=== PATIENT | male | born 1950 | race Caucasian/White ===

== ENCOUNTER 2016-05-19 17:28 | Observation (INO) | payer MEDICARE ==
--- NOTE | 2016-05-19 17:46 | ER Document Report ---
ED Neuro Symptoms/Deficit - General Mode of Arrival: Ambulatory Notes: Patient is a 65-year-old male that presents to the emergency department today with complaints of stroke-like symptoms. Patient states he had lightheadedness and tongue and face numbness on the right-hand side. Patient states he "couldn' t walk" initially when getting out of his truck and that he stumbled against a wall. Patient states he took tramadol and had a beer prior to this episode but he states that none of this is out of the ordinary for him. Patient does smoke. Patient states he does not have a seizure disorder. 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 Patient denies any recent illnesses. TRAVEL OUTSIDE OF THE [place] IN LAST 30 DAYS: No - HPI Patient complains to provider of: Other - see narrative Onset: Just prior to arrival Awoke with symptoms: No Duration: Better, Continues in ED Loss of consciousness: No loss of consciousness <TREE OCASIO - Last Filed: 05/19/16 21:36> <NOHEMY HENDERSON - Last Filed: 05/19/16 23:10> - General Stated Complaint: POSSIBLE STROKE - Related Data Allergies/Adverse Reactions: codeine [Codeine] Allergy (Unknown, Verified 10/30/15 16:50) Past Medical History - General Information source: Patient - Social History Smoking Status: Current Every Day Smoker Cigarette use (# per day): Yes Frequency of alcohol use: Occasional Drug Abuse: None Lives with: Family Family History: Reviewed & Not Pertinent - Medical History Notes: Hx of polio - Past Medical History Cardiac Medical History: Reports: Hx Hypercholesterolemia, Hx Hypertension, Hx Peripheral Vascular Disease Psychiatric Medical History: Reports: Hx Depression Past Surgical History: Reports: Hx Orthopedic Surgery - R and L leg/knee, Hx Vascular Surgery <TREE OCASIO - Last Filed: 05/19/16 21:36> Review of Systems - Review of Systems Constitutional: No symptoms reported EENT: No symptoms reported Cardiovascular: See HPI, Lightheaded Respiratory: No symptoms reported Gastrointestinal: No symptoms reported Genitourinary: No symptoms reported Male Genitourinary: No symptoms reported Musculoskeletal: No symptoms reported Skin: No symptoms reported Hematologic/Lymphatic: No symptoms reported Neurological/Psychological: See HPI, Numbness - tongue and mouth numbness on the right side -: Yes All other systems reviewed and negative <TREE OCASIO - Last Filed: 05/19/16 21:36> Physical Exam - Vital signs Vitals: Pulse Resp BP Pulse Ox 103 H 18 116/77 96 05/19/16 17:30 05/19/16 17:30 05/19/16 17:30 05/19/16 17:30 Interpretation: Tachycardic - General General appearance: Alert In distress: Moderate - Respiratory Respiratory status: No respiratory distress Chest status: Nontender Breath sounds: Normal - Cardiovascular Rhythm: Irregularly irregular - Abdominal Inspection: Normal Tenderness: Nontender - Back Back: Normal, Nontender - Neurological Neuro grossly intact: No [place] Coma Scale Eye Opening: Spontaneous [place] Coma Scale Verbal: Oriented [place] Coma Scale Motor: Obeys Commands [place] Coma Scale Total: 15 Speech: Dysarthria Cranial nerves: Sensory deficit Motor strength normal: LUE - at baseline for patient, LLE - decreased 4/5, RLE - at baseline for patient Sensory: Altered light touch - L face, LUE <NOHEMY HENDERSON - Last Filed: 05/19/16 23:10> Course - Laboratory Result Diagrams: 05/19/16 17:45 05/19/16 17:45 - Consults Call placed to [facility] at 2124 Time consulted: 21:24 Call Returned by [place] Ray Krueger Time consulted: 21:34 <TREE OCASIO - Last Filed: 05/19/16 21:36> - Re-evaluation Re-evalutation: 05/19/16 Patient is a 65-year-old male who presents with slurred speech, left lower extremity weakness, and right-sided sensory deficit. Patient was observed and symptoms resolved over a period of 2 hours. MRI of head with no acute findings. Patient is in atrial fibrillation and has not been Eliquis recently. Patient was discussed with Dr. Krueger from [facility]. Would restart the patient on Eliquis. Will consider admitting the patient with A. fib and TIA today. Discussed with hospitalist service and will be kept for observation. - Vital Signs Vital signs: Temp Pulse Resp BP Pulse Ox 103 H 33 H 117/72 98 05/19/16 17:30 05/19/16 18:16 05/19/16 18:16 03/03/17 18:16 - Laboratory Result Diagrams: 05/19/16 17:45 05/19/16 17:45 Laboratory results interpreted by me: 05/19/16 05/19/16 17:45 17:45 WBC 16.9 H Absolute Neutrophils 11.5 H Sodium 135.1 L Chloride 96 L Carbon Dioxide 21 L <NOHEMY HENDERSON - Last Filed: 05/19/16 23:10> Critical Care Note - Critical Care Note Total time excluding time spent on procedures (mins): 90 - evaluation and management of stroke like symptoms, multiple re-evaluations, consultation of cardiology, coordination of admission, counseling of patient and family <NOHEMY HENDERSON ANDREW - Last Filed: 05/19/16 23:10> ED [employer]/Exc Criteria - Diagnosis of TIA: -: Patient presented with transient symptoms that are now resolved and no other neurologic findings are currently present. List symptoms in comments. -: Yes -: Patient is NOT a candidate for tPA. -: Yes -: ____(put name in comment) has been consulted for admission and continued evaluation of risk factor assessment. <NOHEMY HENDERSON - Last Filed: 05/19/16 23:10> ED NIH Stroke Scale Discharge <TREE OCASIO - Last Filed: 05/19/16 21:36> - Discharge Admitting Provider: [facility] Unit Admitted: Telemetry Scribe Attestation: 05/19/16 23:10 I personally performed the services described in the documentation, reviewed and edited the documentation which was dictated to the scribe in my presence, and it accurately records my words and actions. <NOHEMY HENDERSON ANDREW - Last Filed: 05/19/16 23:10> - Discharge Clinical Impression: TIA (transient ischemic attack) Qualifiers: Transient cerebral ischemia type: unspecified Qualified Code(s): G45.9 - Transient cerebral ischemic attack, unspecified Atrial fibrillation Qualifiers: Atrial fibrillation type: unspecified Qualified Code(s): I48.91 - Unspecified atrial fibrillation Condition: Stable Disposition: ADMITTED OBSERVATION Scribe Documentation - Scribe Written by Scribe:: Zaira Francisco, [id number] acting as scribe for DrJulisa:: Sneha <TREE OCASIO - Last Filed: 05/19/16 21:36>
[2016-05-19 17:59] LABS: ABSOLUTE BASOPHILS # (AUTO) 0.1 10^3/uL (0.0-0.2); ABSOLUTE EOSINOPHILS # (AUTO) 0.6 10^3/uL (0.0-0.6); ABSOLUTE LYMPHOCYTES (AUTO) 3.3 10^3/uL (0.5-4.7); ABSOLUTE MONOCYTES (AUTO) 1.4 10^3/uL (0.1-1.4); ABSOLUTE NEUT (AUTO) 11.5 10^3/uL (1.7-8.2); BASOPHILS % (AUTO) 0.9 % (0-2); EOSINOPHILS % (AUTO) 3.5 % (0-6); HEMATOCRIT 48.8 % (37.9-51.0); HEMOGLOBIN 16.6 g/dL (13.5-17.0); LYMPHOCYTES % (AUTO) 19.3 % (13-45); MEAN CORPUSCULAR VOLUME 94 fl (80-97); MONOCYTES % (AUTO) 8.2 % (3-13); RED BLOOD COUNT 5.19 10^6/uL (4.35-5.55); RED CELL DISTRIBUTION WIDTH 13.6 % (11.5-14.0); SEGMENTED NEUTROPHILS % (AUTO) 68.1 % (42-78); WHITE BLOOD COUNT 16.9 10^3/uL (4.0-10.5)
[2016-05-19 18:00] LABS: PROTHROMBIN TIME 12.8 SEC (11.4-15.4)
[2016-05-19 18:01] LABS: PARTIAL THROMBOPLASTIN TIME 27.2 SEC (23.5-35.8)
[2016-05-19 18:16] LABS: ALANINE AMINOTRANSFERASE 44 U/L (21-72); ALBUMIN 4.1 g/dL (3.5-5.0); ALCOHOL 63 mg/dL (NONE DETECTED); ALKALINE PHOSPHATASE 62 U/L (38-126); ANION GAP 18 (5-19); ASPARTATE AMINO TRANSFERASE 35 U/L (17-59); BILIRUBIN,TOTAL 0.6 mg/dL (0.2-1.3); BLOOD UREA NITROGEN 17 mg/dL (7-20); CARBON DIOXIDE 21 mmol/L (22-30); CHLORIDE 96 mmol/L (98-107); CREATINE KINASE 98 U/L (55-170); CREATININE RESULT 0.64 mg/dL (0.52-1.25); GLUCOSE 103 mg/dL (75-110); POTASSIUM 4.1 mmol/L (3.6-5.0); SODIUM 135.1 mmol/L (137-145); TOTAL PROTEIN 6.9 g/dL (6.3-8.2)
[2016-05-19 18:26] LABS: CREATINE KINASE MB 1.24 ng/mL (<4.55); TROPONIN I < 0.012 ng/mL
--- NOTE | 2016-05-19 18:53 | EKG REPORT ---
SEVERITY:- ABNORMAL ECG - ATRIAL FIBRILLATION, V-RATE 72-120 RIGHT BUNDLE BRANCH BLOCK : Confirmed by: Fabián Sifuentes MD 19-May-2016 18:52:24
[2016-05-19] MEDS ORDERED: DIAZEPAM 2 MG TABLET PO ONE (20:02)
[2016-05-19] MEDS ORDERED: APIXABAN 5 MG TABLET PO ONE (21:36)
[2016-05-19] MEDS ORDERED: DOCUSATE SODIUM 100 MG CAPSULE PO PRN (22:43)
[2016-05-19] MEDS ORDERED: ACETAMINOPHEN 325 MG TABLET PO PRN (22:43)
--- NOTE | 2016-05-20 04:37 | PDOC H&P ---
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 Patient been in his usual state of health until approximately 4 hours prior to presentation he had returned from [place] after visiting an ill relative and hospital had a sudden onset of numbness and tingling about the lips and fingertips. Prior to this he had had a single beer resulting in an ethanol level of 63 6 hours prior to testing and a single tramadol. His symptoms progressed finding it difficult to walk and having slurred speech. In the emergency room his symptoms have resolved to baseline. He denies anxiety, any new medications, palpitations nausea vomiting headache or blurred vision. In the emergency room he has an unremarkable CT of the head MRI of the head and is referred to the hospitalist for admission. Past Medical History Cardiac Medical History: Reports: Atrial Fibrillation, Hyperlipidema, Hypertension, Peripheral Vascular Disease Endocrine Medical History: Reports: Obesity Psychiatric Medical History: Reports: Depression, Tobacco Dependency Past Surgical History Past Surgical History: Reports: Orthopedic Surgery - R and L leg/knee, Vascular Surgery Social History Lives with: Family Smoking Status: Current Every Day Smoker Cigarettes Packs Per Day: 1 Number of Years Smokin Frequency of Alcohol Use: Social Hx Recreational Drug Use: No Drugs: None Hx Prescription Drug Abuse: No - Advance Directive Resuscitation Status: Full Code Family History Family History: CVA Parental Family History Reviewed: Yes Children Family History Reviewed: Yes Sibling(s) Family History Reviewed.: Yes Medication/Allergy Home Medications: Alprazolam 0.5 mg PO BID 10/30/15 Apixaban [Eliquis] 5 mg PO BID 10/30/15 Losartan/Hydrochlorothiazide [Hyzaar 100-25 Tablet] 1 tab PO DAILY 10/30/15 Metoprolol Succinate 50 mg PO DAILY 10/30/15 Pravastatin Sodium 40 mg PO DAILY 10/30/15 Tramadol HCl 50 mg PO PRN PRN 10/30/15 Ceftriaxone 2 gm/D5w RTU [Rocephin RTU 2 gm/D5w 50 ml Premix Bag] 2 gm IV DAILY #14 rtupb 11/01/15 Allergies/Adverse Reactions: codeine [Codeine] Allergy (Unknown, Verified 10/30/15 16:50) Review of Systems Constitutional: ABSENT: chills, fever(s), headache(s), weight gain, weight loss Eyes: ABSENT: visual disturbances Ears: ABSENT: hearing changes Cardiovascular: ABSENT: chest pain, dyspnea on exertion, edema, orthropnea, palpitations Respiratory: ABSENT: cough, hemoptysis Gastrointestinal: ABSENT: abdominal pain, constipation, diarrhea, hematemesis, hematochezia, nausea, vomiting Genitourinary: ABSENT: dysuria, hematuria Musculoskeletal: ABSENT: joint swelling Integumentary: ABSENT: rash, wounds Neurological: ABSENT: abnormal gait, abnormal speech, confusion, dizziness, focal weakness, syncope Psychiatric: ABSENT: anxiety, depression, homidical ideation, suicidal ideation Endocrine: ABSENT: cold intolerance, heat intolerance, polydipsia, polyuria Hematologic/Lymphatic: ABSENT: easy bleeding, easy bruising Physical Exam Vital Signs: Temp Pulse Resp BP Pulse Ox 97.3 F 79 18 108/74 98 05/20/16 00:14 05/20/16 02:00 05/20/16 00:30 05/20/16 00:30 05/20/16 00:30 Intake & Output 05/18/16 05/19/16 05/20/16 11:59 11:59 11:59 Weight 128.9 kg General appearance: PRESENT: no acute distress, well-developed, well-nourished Head exam: PRESENT: atraumatic, normocephalic Eye exam: PRESENT: conjunctiva pink, EOMI, PERRLA. ABSENT: scleral icterus Ear exam: PRESENT: normal external ear exam Mouth exam: PRESENT: moist, tongue midline Neck exam: ABSENT: carotid bruit, JVD, lymphadenopathy, thyromegaly Respiratory exam: PRESENT: clear to auscultation [place]. ABSENT: rales, rhonchi, wheezes Cardiovascular exam: PRESENT: RRR. ABSENT: diastolic murmur, rubs, systolic murmur Pulses: PRESENT: normal dorsalis pedis pul Vascular exam: PRESENT: normal capillary refill GI/Abdominal exam: PRESENT: normal bowel sounds, soft. ABSENT: distended, guarding, mass, organolmegaly, rebound, tenderness Rectal exam: PRESENT: deferred Extremities exam: PRESENT: full ROM, +1 edema - Chronic right leg edema. ABSENT : calf tenderness, clubbing, pedal edema Neurological exam: PRESENT: alert, awake, oriented to person, oriented to place , oriented to time, oriented to situation, CN II-XII grossly intact. ABSENT: motor sensory deficit Psychiatric exam: PRESENT: appropriate affect, normal mood. ABSENT: homicidal ideation, suicidal ideation Skin exam: PRESENT: dry, intact, warm. ABSENT: cyanosis, rash Results Impressions: Chest X-Ray 05/19/16 17:31 IMPRESSION: NO ACUTE RADIOGRAPHIC FINDING IN THE CHEST. Head CT 05/19/16 17:31 IMPRESSION: 1. No evidence of acute event. 2. Mild chronic small vessel ischemic disease. Head MRI 05/19/16 18:48 IMPRESSION: Negative for acute or sub-acute infarction. Scattered high-signal intensity lesions scattered throughout the white matter on FLAIR imaging with distribution suggesting chronic micro-vascular ischemic change. Assessment & Plan - Diagnosis (1) TIA (transient ischemic attack) Qualifiers: Transient cerebral ischemia type: unspecified Qualified Code(s): G45.9 - Transient cerebral ischemic attack, unspecified Is this a current diagnosis for this admission?: YesPlan: Vague symptoms confounded by benzodiazepine, tramadol, alcohol and noncompliance with anticoagulation. He'll be observed on a monitored bed evaluated for TIA with resumption of Eliquis, aspirin, statin evaluation of carotid artery, and 2-D echo. (2) Atrial fibrillation Qualifiers: Atrial fibrillation type: unspecified Qualified Code(s): I48.91 - Unspecified atrial fibrillation Is this a current diagnosis for this admission?: YesPlan: Rate limited resume Eliquis evaluate CBC in a.m. (3) Leukocytosis Is this a current diagnosis for this admission?: YesPlan: Patient is without focal symptoms I'll evaluate a urinalysis and repeat CBC in a.m. (4) Tobacco abuse Is this a current diagnosis for this admission?: YesPlan: Tobacco Dependence patient received tobacco cessation counseling and offered nicotine replacement options (5) Morbid obesity with BMI of 40.0-44.9, adult Is this a current diagnosis for this admission?: YesPlan: Consider evaluation of TSH and dietitian consult - Time Time Spent: 50 to 70 Minutes
[2016-05-20 04:55] LABS: APPEARANCE,URINE CLEAR; BILIRUBIN,URINE NEGATIVE (NEGATIVE); GLUCOSE, URINE NEGATIVE (NEGATIVE); KETONES,URINE NEGATIVE (NEGATIVE); LEUKOCYTE ESTERASE,URINE NEGATIVE (NEGATIVE); NITRITE,URINE NEGATIVE (NEGATIVE); PROTEIN,URINE 30 mg/dL (NEGATIVE); URINE SPECIFIC GRAVITY 1.006; UROBILINOGEN,URINE NEGATIVE mg/dL (<2.0)
[2016-05-20 05:13] LABS: URINE BARBITURATES SCREEN NEGATIVE; URINE METHADONE SCREEN NEGATIVE; URINE OPIATES LOW NEGATIVE; URINE PHENCYCLIDINE SCREEN NEGATIVE
[2016-05-20] MEDS ORDERED: ASPIRIN 325 MG TABLET, ENT COATED PO SCH (10:00)
[2016-05-20] MEDS ORDERED: METOPROLOL SUCCINATE 50 MG TAB.SR.24H PO SCH (10:00)
[2016-05-20] MEDS: APIXABAN 5 MG TABLET PO SCH ×2 (10:27→17:04)
[2016-05-20] MEDS: ALPRAZOLAM 0.5 MG TABLET PO SCH ×2 (10:31→17:04)
[2016-05-20 16:09] VITALS: BP 108/74
--- NOTE | 2016-05-20 17:08 | PDOC DISCHARGE SUMMARY ---
General - Admit/Disc Date/PCP Admission Date/Primary Care Provider: 05/19/16 22:43 [facility]- Discharge Date: 05/20/16 - Discharge Diagnosis (1) TIA (transient ischemic attack) Is this a current diagnosis for this admission?: YesSummary: Patient underwent CT of the head, MRI of the head and carotid duplex which were all normal. His main complaint was numbness of his fingers and lips. This has resolved (2) Atrial fibrillation Is this a current diagnosis for this admission?: YesSummary: Patient does have paroxysmal atrial fibrillation a controlled on telemetry. He had stopped his Eliquis on his own. This is been reinitiated he is agreeable to take and follow-up with craft demonstrator. (3) Morbid obesity with BMI of 40.0-44.9, adult Is this a current diagnosis for this admission?: YesSummary: Patient counseled on need for weight loss (4) Tobacco abuse Is this a current diagnosis for this admission?: YesSummary: Patient counseled he does not plan on quitting anytime soon. (5) Obstructive sleep apnea Summary: Patient missed noncompliance with his CPAP. We discussed this could cause hypercapnea and his symptoms he's been having. States he will become compliant with using CPAP nightly. - Additional Information Resuscitation Status: Full Code Discharge Activity: Activity As Tolerated Home Medications: Apixaban [Eliquis 5 mg Tablet] 5 mg PO BID tablet 05/20/16 Apixaban [Eliquis 5 mg Tablet] 5 mg PO BID #60 tablet 05/20/16 Aspirin [Aspirin EC] 81 mg PO DAILY 05/20/16 Losartan/Hydrochlorothiazide [Hyzaar 100-25 Tablet] 1 each PO DAILY 05/20/16 Metoprolol Succinate [Toprol Xl 50 mg Tab.sr] 50 mg PO DAILY 05/20/16 Metoprolol Succinate [Toprol Xl 50 mg Tab.sr] 50 mg PO DAILY tab.sr.24h Multivit-Min/FA/Lycopen/Lutein [Centrum Silver Men Tablet] 1 each PO DAILY 05/20 Pravastatin Sodium [Pravachol] 20 mg PO DAILY 05/20/16 Tramadol HCl [Ultram 50 mg Tablet] 50 mg PO DAILYP PRN 05/20/16 History of Present Illness Patient complains of: Numbness of the lips, right hand and difficulty walking History of Present Illness: FARTUN CARRION is a 65 year old male with past medical history of atrial fibrillation, morbid obesity, obstructive sleep apnea, dyslipidemia, essential hypertension and tobacco abuse present, presents with numbness of lips, right hand and difficulty walking. Full workup in the ER which included CT of the head which is unremarkable and lab values. His noted to have paroxysmal atrial fibrillation rate controlled on EKG. It stopped taking his Eliquis recently. He states he did not think he was in atrial fibrillation anymore. By the time he arrived here his symptoms have resolved. He was referred to the hospitalist service for admission. Hospital Course Hospital Course: Patient was admitted to [facility] on telemetry. He underwent MRI of his head which can was unremarkable for any acute infarct. He had carotid duplex ordered for done later today. These were unremarkable for any obvious stenosis. Patient had some paroxysmal atrial fibrillation which is rate controlled. He was placed back on his Eliquis therapy and discussed the need for him to take this. He's had no further symptoms. He is agreeable to all Neal therapy and using his CPAP. He will follow-up with craft demonstrator post discharge Physical Exam Vital Signs: Temp Pulse Resp BP Pulse Ox 97.5 F 83 20 108/74 95 05/20/16 16:05 05/20/16 16:05 05/20/16 16:05 05/20/16 16:05 05/20/16 16:05 Intake & Output 05/19/16 05/20/16 05/21/16 06:59 06:59 06:59 Intake Total 484 1074 Output Total 650 500 Balance -166 574 Weight 128.9 kg 128.9 kg General appearance: PRESENT: no acute distress, morbidly obese, well-developed, well-nourished Head exam: PRESENT: atraumatic, normocephalic Eye exam: PRESENT: conjunctiva pink, EOMI, PERRLA. ABSENT: scleral icterus Ear exam: PRESENT: normal external ear exam Mouth exam: PRESENT: moist, tongue midline Neck exam: ABSENT: carotid bruit, JVD, lymphadenopathy, thyromegaly Respiratory exam: PRESENT: clear to auscultation [place]. ABSENT: rales, rhonchi, wheezes Cardiovascular exam: PRESENT: RRR. ABSENT: diastolic murmur, rubs, systolic murmur Pulses: PRESENT: normal dorsalis pedis pul Vascular exam: PRESENT: normal capillary refill GI/Abdominal exam: PRESENT: normal bowel sounds, soft. ABSENT: distended, guarding, mass, organolmegaly, rebound, tenderness Rectal exam: PRESENT: deferred Extremities exam: PRESENT: full ROM. ABSENT: calf tenderness, clubbing, pedal edema Neurological exam: PRESENT: alert, awake, oriented to person, oriented to place , oriented to time, oriented to situation, CN II-XII grossly intact. ABSENT: motor sensory deficit Psychiatric exam: PRESENT: appropriate affect, normal mood. ABSENT: homicidal ideation, suicidal ideation Skin exam: PRESENT: dry, intact, warm. ABSENT: cyanosis, rash Results Laboratory Results: 05/20/16 04:40 Urine Color YELLOW Urine Appearance CLEAR Urine pH 6.0 Ur Specific [place] 1.006 Urine Protein 30 H Urine Glucose (UA) NEGATIVE Urine Ketones NEGATIVE Urine Blood NEGATIVE Urine Nitrite NEGATIVE Ur Leukocyte Esterase NEGATIVE Impressions: Chest X-Ray 05/19/16 17:31 IMPRESSION: NO ACUTE RADIOGRAPHIC FINDING IN THE CHEST. Head CT 05/19/16 17:31 IMPRESSION: 1. No evidence of acute event. 2. Mild chronic small vessel ischemic disease. Head MRI 05/19/16 18:48 IMPRESSION: Negative for acute or sub-acute infarction. Scattered high-signal intensity lesions scattered throughout the white matter on FLAIR imaging with distribution suggesting chronic micro-vascular ischemic change. Carotid Doppler Study 05/20/16 00:00 IMPRESSION: NO HEMODYNAMICALLY SIGNIFICANT STENOSIS. Qualifiers PATEINT BEING DISCHARGED WITH ANY OF THE FOLLOWING DIAGNOSIS?: No Plan Discharge Plan: Discharge home with family Time Spent: Less than 30 Minutes
[2016-05-20] MEDS ORDERED: ATORVASTATIN CALCIUM 10 MG TABLET PO SCH (22:00)
== END 2016-05-20 17:19 | disposition home or self-care (01) ==
LOC: ER 17:28 → OBSVTOIN 22:23 → UNDOADMOB 22:23 → INTOOBSV 22:23 → EH 22:23 → OBSVTOIN 22:43 → INTOOBSV 22:43 → 3W 23:50
PROVIDERS: ADMIT Internal Medicine; ATTEND Internal Medicine
DX: G45.9 Transient cerebral ischemic attack, unspecified (principal); I48.0 Paroxysmal atrial fibrillation; E66.01 Morbid (severe) obesity due to excess calories; Z68.41 Body mass index [BMI] 40.0-44.9, adult; G47.33 Obstructive sleep apnea (adult) (pediatric); I10 Essential (primary) hypertension; E78.5 Hyperlipidemia, unspecified; F17.210 Nicotine dependence, cigarettes, uncomplicated; D72.829 Elevated white blood cell count, unspecified
CPT/HCPCS: 93005; 99291; 99292; 36415; 82553; 82962; 80307 ×2; 82550; 85025; 85610; 85730; 80053; 81001; 84484; 93880; 70551; 71010; 70450; 93010; A9270 ×5; J3490

== ENCOUNTER → 2017-09-17 | Outpatient (CLI) | payer MEDICARE ==
--- NOTE | 2017-09-17 16:00 | RADIOLOGY REPORT (SQ) ---
EXAM DESCRIPTION: ARTERIAL LOWER EXTREM BILAT COMPLETED DATE/TIME: 09/17/2017 2:42 pm REASON FOR STUDY: PVD I73.9 PERIPHERAL VASCULAR DISEASE, UNSPECIFIED COMPARISON: None. TECHNIQUE: Dynamic and static wolfe scale and color images acquired of the lower extremity arteries. Additional selected spectral images recorded. ABIs recorded. LIMITATIONS: Obese patient, tachycardic FINDINGS: RIGHT LEG: ABIS: Patient refused ankle-brachial indices INFLOW ARTERIES: Monophasic flow in the right distal external iliac artery worrisome for more proxima l stenosis FEMORAL ARTERIES:Monophasic flow in the right profunda and superficial femoral arteries. Diffuse dis ease throughout the right superficial femoral artery with multiple tandem stenoses. Superficial femo ral artery not well seen at the adductor canal. POPLITEAL ARTERY:Monophasic waveforms, diffusely diseased. PATENT TIBIOPERONEAL TRUNK AND 3 VESSEL RUNOFF: Monophasic flow in the posterior tibial artery. Prox imal anterior tibial artery is occluded. There is monophasic flow in the dorsalis pedis artery from collaterals. Peroneal artery not visualized. TBI: Not performed. OTHER: No other significant finding. LEFT LEG: ABIS: Patient refused ankle-brachial indices INFLOW ARTERIES: Monophasic flow in the distal left external iliac artery/proximal common femoral art joseph worrisome for more proximal stenosis. FEMORAL ARTERIES:Monophasic flow in the left profunda and superficial femoral arteries.. Diffuse dise ase throughout the left superficial femoral artery with multiple tandem stenoses. Superficial femora l artery not well seen at the adductor canal. POPLITEAL ARTERY:Monophasic waveforms. Diffusely diseased PATENT TIBIOPERONEAL TRUNK AND 3 VESSEL RUNOFF: Posterior tibial artery is patent with monophasic maggie w. Anterior tibial artery is occluded proximally, with monophasic flow seen in the dorsalis pedis ar ysabel. Peroneal artery not visualized. TBI: Not performed. OTHER: No other significant finding. IMPRESSION: Limited study due to body habitus and tachycardia. There is iliac inflow disease and bi lateral significant superficial femoral artery disease. 1 vessel runoff in the calf bilaterally. Patient refused ankle-brachial indices COMMENT: [facility] NORMAL: Greater than 1.0 MINIMAL DISEASE: 0.9 to 1.0 CLAUDICATION: 0.5 to 0.9 SEVERE ARTERIAL DISEASE: Less than 0.5 [facility] NORMAL: Greater than 1.0 (1.2 If Heavy Calcifications) NORMAL TO MILD ISCHEMIA: 0.8 to 1.0 MODERATE ISCHEMIA: 0.4 to 0.8 SEVERE ISCHEMIA: Less than 0.4 TECHNICAL DOCUMENTATION: JOB ID: [id number] [employer]- All Rights Reserved Reading location - IP/workstation name: [email or web address]
== END ==
LOC: SP 08:34
PROVIDERS: ATTEND Surgery
DX: I73.9 Peripheral vascular disease, unspecified (principal)
CPT/HCPCS: 93925

== ENCOUNTER 2017-10-09 15:47 | Emergency (ER) | payer MEDICARE ==
[2017-10-09] MEDS ORDERED: MORPHINE SULFATE 10 MG/ML INJ IV ONE (16:25)
[2017-10-09 16:27] LABS: ABSOLUTE BASOPHILS # (AUTO) 0.1 10^3/uL (0.0-0.2); ABSOLUTE EOSINOPHILS # (AUTO) 0.7 10^3/uL (0.0-0.6); ABSOLUTE LYMPHOCYTES (AUTO) 1.7 10^3/uL (0.5-4.7); ABSOLUTE NEUT (AUTO) 6.1 10^3/uL (1.7-8.2); BASOPHILS % (AUTO) 0.8 % (0-2); EOSINOPHILS % (AUTO) 7.5 % (0-6); HEMATOCRIT 45.2 % (37.9-51.0); LYMPHOCYTES % (AUTO) 17.8 % (13-45); MEAN CORPUSCULAR HEMOGLOBIN 31.4 pg (27.0-33.4); MEAN CORPUSCULAR HGB CONC 33.1 g/dL (32.0-36.0); MEAN CORPUSCULAR VOLUME 95 fl (80-97); MONOCYTES % (AUTO) 10.2 % (3-13); PLATELET COUNT 342 10^3/uL (150-450); RED BLOOD COUNT 4.76 10^6/uL (4.35-5.55); RED CELL DISTRIBUTION WIDTH 14.8 % (11.5-14.0); SEGMENTED NEUTROPHILS % (AUTO) 63.7 % (42-78); TOTAL CELLS COUNTED % (AUTO) 100 %; WHITE BLOOD COUNT 9.5 10^3/uL (4.0-10.5)
[2017-10-09 16:36] LABS: ALANINE AMINOTRANSFERASE 22 U/L (21-72); ALBUMIN 3.3 g/dL (3.5-5.0); ALKALINE PHOSPHATASE 61 U/L (38-126); ANION GAP 11 (5-19); ASPARTATE AMINO TRANSFERASE 24 U/L (17-59); BILIRUBIN,DIRECT 0.3 mg/dL (0.0-0.4); BILIRUBIN,TOTAL 0.4 mg/dL (0.2-1.3); BLOOD UREA NITROGEN 14 mg/dL (7-20); C-REACTIVE PROTEIN 34.5 mg/L (<10.0); CALCIUM 9.3 mg/dL (8.4-10.2); CARBON DIOXIDE 33 mmol/L (22-30); CHLORIDE 95 mmol/L (98-107); CREATINE KINASE 65 U/L (55-170); GLUCOSE 118 mg/dL (75-110); POTASSIUM 4.6 mmol/L (3.6-5.0); SODIUM 138.8 mmol/L (137-145); TOTAL PROTEIN 6.5 g/dL (6.3-8.2)
[2017-10-09 16:46] LABS: CREATINE KINASE MB 1.03 ng/mL (<4.55); NT PRO BNP 644 pg/mL (5-900)
--- NOTE | 2017-10-09 16:46 | RADIOLOGY REPORT (SQ) ---
EXAM DESCRIPTION: CHEST SINGLE VIEW COMPLETED DATE/TIME: 10/09/2017 4:39 pm REASON FOR STUDY: ble, new RBBB COMPARISON: 05/19/2016 NUMBER OF VIEWS: One view. TECHNIQUE: Single frontal radiographic view of the chest acquired. LIMITATIONS: None. FINDINGS: LUNGS AND PLEURA: No opacities, masses or pneumothorax. No pleural effusion. MEDIASTINUM AND HILAR STRUCTURES: No masses. Contour normal. HEART AND VASCULAR STRUCTURES: Heart enlarged without failure. Normal vasculature. BONES: No acute findings. HARDWARE: None in the chest. OTHER: No other significant finding. IMPRESSION: No acute findings. TECHNICAL DOCUMENTATION: JOB ID: [id number] [employer]- All Rights Reserved Reading location - IP/workstation name: [email or web address]
[2017-10-09 16:47] LABS: TROPONIN I < 0.012 ng/mL
--- NOTE | 2017-10-09 16:53 | ER Document Report ---
ED General - General Stated Complaint: LEG SWELLING Time Seen by Provider: 10/09/17 16:15 Mode of Arrival: Medic Information source: Patient, Relative TRAVEL OUTSIDE OF THE [place] IN LAST 30 DAYS: No - HPI Notes: 67-year-old male hypertension, hypercholesterolemia, PVD, atrial fibrillation presents to the ED via EMS for complaints of severe bilateral lower leg pain and swelling has become severely worse in the last 3 weeks since he was diagnosed with heart arterial occlusion bilateral lower extremity by Dr. Wilmer Zheng. Patient was referred to a vascular surgeon in [place] which he has an appointment in 2 days. It is 10 out of 10, sharp constant and achy. Denies any recent trauma. Is currently on Xarelto 20 mg which she has been on for the last year for atrial fibrillation which has been stable. Patient recently quit smoking a week ago. Reports he used to smoke a pack a day for at least 40 years. patient does not take any diuretics. Patient is unable to ambulate due to severe pain has not taken any controlled substance pain medication. been occurring for the last 3 weeks was evaluated by Dr. Wilmer Zheng, vascular surgeon who did an ultrasound which showed concern for occlusion to femoral arteries with noted stenosis, occlusion posterior tibial artery. Denies any chest pain, shortness of breath, nausea vomiting or diarrhea. - Related Data Allergies/Adverse Reactions: codeine [Codeine] Allergy (Unknown, Verified 10/30/15 16:50) Past Medical History - General Information source: Patient, Relative - - Social History Smoking Status: Former Smoker - quite 1 week ago Family History: Reviewed & Not Pertinent, CVA, Hyperlipidemia, Hypertension - Past Medical History Cardiac Medical History: Reports: Hx Atrial Fibrillation, Hx Hypercholesterolemia, Hx Hypertension, Hx Peripheral Vascular Disease Psychiatric Medical History: Reports: Hx Depression Past Surgical History: Reports: Hx Orthopedic Surgery - R and L leg/knee, Hx Vascular Surgery - Immunizations Hx Pneumococcal Vaccination: 12/17/16 Review of Systems - Review of Systems Constitutional: See HPI EENT: No symptoms reported Cardiovascular: No symptoms reported Respiratory: No symptoms reported Gastrointestinal: No symptoms reported Genitourinary: No symptoms reported Male Genitourinary: No symptoms reported Musculoskeletal: See HPI Skin: See HPI Hematologic/Lymphatic: See HPI Neurological/Psychological: No symptoms reported Physical Exam - Vital signs Vitals: Temp 97.8 F 10/09/17 17:56 - Notes Notes: PHYSICAL EXAMINATION: GENERAL: Chronically ill morbidly obese and in moderate distress HEAD: Atraumatic, normocephalic. EYES: Pupils equal round and reactive to light, extraocular movements intact, sclera anicteric, conjunctiva are normal. ENT: Nares patent, oropharynx clear without exudates. Moist mucous membranes. NECK: Normal range of motion, supple without lymphadenopathy LUNGS: Breath sounds clear to auscultation bilaterally and equal. No wheezes rales or rhonchi. HEART: Regular rate and rhythm without murmurs ABDOMEN: Soft, nontender, nondistended abdomen. No guarding, no rebound. No masses appreciated. Musculoskeletal: Normal range of motion, no pitting or edema. No cyanosis. left and calf severe pain with palpation to calf. positive hyun's sign bilaterally. Full motor and sensory function. no ecchymosis or abrasions noted. Bilateral lower extremity without deformity or asymmetry. Noted swelling and edema to bilateral lower extremities, nonpitting. Able to palpate pulses and posterior tibial, dorsalis Pedialyte as, popliteal bilaterally, faint pulses palpated in femoral arteries bilaterally. Radial pulses +2 bilateral upper extremities equally. delayed capillary refill to femoral arteries, approximately 5 seconds. No lesions or break in the skin integrity. No evidence of compartment syndrome, lymphadenopathy, gangrene. No palpable cords or evidence of thrombophlebitis. IF HAD THROMBO: possible superficial thrombophlebitis with palpable, tender cords. NEUROLOGICAL: Cranial nerves grossly intact. Normal speech, normal gait. Normal sensory, motor exams PSYCH: Normal mood, normal affect. SKIN: Warm, Dry, normal turgor, no rashes or lesions noted. Course - Re-evaluation Re-evalutation: 10/09/17 17:43 67-year-old male is afebrile, in severe pain presents to the ED via EMS for severe lower leg pain and history of bilateral lower extremity vascular occlusion any arterial ultrasound was read by Dr. Jacques Russell, vascular surgeon on 09/17/2017 Was advised then to follow-up with her vascular surgeon, referral to a vascular surgeon Petra, patient has an appointment in 2 days to be seen by vascular surgeon. Patient states that pain is become so severe he cannot ambulate and uses a scooter at home. he is only had [id number] ibuprofen and Tylenol, has not tried any controlled substances for pain control. Cardiac enzymes negative, chest x-ray, per radiology. EKG negative for STEMI, heart rate 81, patient is in A. fib as well as on Eliquis. CBC negative for leukocytosis. CMP unremarkable. Consulted with Dr. Wilmer Zheng , vascular surgeon chief operations officer, at 1641 to consult about this patient's, he states that if he pain is becoming more severe that it would not be inappropriate to order another arterial ultrasound however he does need an angiogram which we are not able to do it at [facility] and advised to initiate transfer to [place] for evaluation by vascular surgeon. Venous ultrasound bilateral lower extremities negative for dvt's. consulted with [facility] Johnston in [place], [place] with Dr. Morteza Anthony, vascular surgeon, at 1700, regarding patient's vascular occlusion with severe pain for angiogram and further evaluation. Patient is taking Xarelto 20 mg daily for the last year for atrial fibrillation. Eze this has not prevented occlusion, advised to start heparin per protocol with bolus and maintenance. Coags and platelets are normal. Pt was excepted with the ER to ER transfer. Patient given morphine and Dilaudid for pain control. On reevaluation, pain is reduced to 6 out of 10 as opposed to 10 out of 10. Patient will be going by ground ambulance. - Vital Signs Vital signs: Temp Pulse Resp BP Pulse Ox 97.8 F 10/09/17 18:29 - Laboratory Result Diagrams: 10/09/17 15:23 10/09/17 15:23 Laboratory results interpreted by me: 10/09/17 10/09/17 10/09/17 15:23 15:23 15:23 RDW 14.8 H Eosinophils % 7.5 H Absolute Eosinophils 0.7 H PT 21.2 H APTT 37.3 H Chloride 95 L Carbon Dioxide 33 H Glucose 118 H C-Reactive Protein 34.5 H Albumin 3.3 L Urine Protein 10/09/17 17:20 RDW Eosinophils % Absolute Eosinophils PT APTT Chloride Carbon Dioxide Glucose C-Reactive Protein Albumin Urine Protein 30 H Discharge - Discharge Clinical Impression: Vascular occlusion of lower extremities, Severe leg pain, Morbid obesity with BMI of 40.0-44.9, adult, Pulselessness to BLE Atrial fibrillation Qualifiers: Atrial fibrillation type: paroxysmal Qualified Code(s): I48.0 - Paroxysmal atrial fibrillation Condition: Stable Disposition: [facility] Referrals: BRUCE ZHENG MD [ACTIVE STAFF] - Follow up as needed
[2017-10-09] MEDS ORDERED: HEPARIN SOD (PORCINE) 1,000 UNIT/ML 10 ML VIAL IV ONE (17:16)
[2017-10-09] MEDS ORDERED: HEPARIN SODIUM,PORCINE/D5W 25,000 UNIT/250 ML RTUINJ IV PRN (17:18)
[2017-10-09 17:31] LABS: PARTIAL THROMBOPLASTIN TIME 37.3 SEC (23.5-35.8)
[2017-10-09 17:40] LABS: INTERNATIONAL RATION (INR) 1.74; PROTHROMBIN TIME 21.2 SEC (11.4-15.4)
[2017-10-09 17:42] LABS: APPEARANCE,URINE CLEAR; BILIRUBIN,URINE NEGATIVE (NEGATIVE); COLOR,URINE YELLOW; GLUCOSE, URINE NEGATIVE (NEGATIVE); KETONES,URINE NEGATIVE (NEGATIVE); LEUKOCYTE ESTERASE,URINE NEGATIVE (NEGATIVE); NITRITE,URINE NEGATIVE (NEGATIVE); PROTEIN,URINE 30 mg/dL (NEGATIVE); UROBILINOGEN,URINE NEGATIVE mg/dL (<2.0)
[2017-10-09] MEDS ORDERED: HYDROMORPHONE HCL INJ/PF 2 MG/ML AMPULE IV ONE (18:04)
--- NOTE | 2017-10-09 19:01 | RADIOLOGY REPORT (SQ) ---
EXAM DESCRIPTION: VENOUS BILATERAL LOWER COMPLETED DATE/TIME: 10/09/2017 6:37 pm REASON FOR STUDY: r/o dvts COMPARISON: None. TECHNIQUE: Dynamic and static wolfe scale and color images acquired of both lower extremity venous sy stems. Selected spectral images acquired with additional compression and augmentation maneuvers. Imag es stored on PACS. LIMITATIONS: Limited due to bandages and technical factors. FINDINGS: RIGHT LEG Common femoral vein compresses normally. The proximal superficial femoral vein compresses normally. The remainder of the femoral and popliteal and calf veins are not well visualized. OTHER: No other significant finding. LEFT LEG Common femoral vein compresses normally. The proximal superficial femoral vein compresses normally. T he remainder of the femoral and popliteal and calf veins are not well visualized. OTHER: No other significant finding. IMPRESSION: Bilateral Common femoral vein compresses normally. Bilateral proximal superficial femor al vein compresses normally. The remainder of the bilateral femoral and popliteal and calf veins are not well visualized. TECHNICAL DOCUMENTATION: JOB ID: [id number] [place]-[id number] 2010 [employer]- All Rights Reserved Reading location - IP/workstation name: [email or web address]
[2017-10-09 19:31] VITALS: BP 131/66
[2017-10-09] MEDS ORDERED: HEPARIN SOD (PORCINE) 5,000 UNIT/ML 1 ML SYRINGE SUBCUT ONE (19:45)
--- NOTE | 2017-10-10 00:18 | EKG REPORT ---
SEVERITY:- ABNORMAL ECG - ATRIAL FIBRILLATION, V-RATE [id number] RIGHT BUNDLE BRANCH BLOCK : Confirmed by: Bernadette Morgan MD 10-Oct-2017 00:17:10
== END 2017-10-09 20:35 | disposition short-term general hospital (02) ==
LOC: ER 15:47
DX: I99.8 Other disorder of circulatory system (principal); I48.0 Paroxysmal atrial fibrillation; I48.91 Unspecified atrial fibrillation; M79.89 Other specified soft tissue disorders; E78.00 Pure hypercholesterolemia, unspecified; I10 Essential (primary) hypertension; E66.01 Morbid (severe) obesity due to excess calories; Z68.41 Body mass index [BMI] 40.0-44.9, adult; Z79.02 Long term (current) use of antithrombotics/antiplatelets
CPT/HCPCS: 93005; 99285; 96372; 96375; 96365; 36415; 82553; 82550; 85025; 85610; 85730; 86140; 80053; 81001; 84484; 83880; 93970; 71045; 93010; J1644 ×2; J2270; J1170